=== PATIENT | male | born 1995 | race Caucasian/White ===

== ENCOUNTER 2022-08-08 06:35 | Day surgery (SDC) | payer BC ==
[2022-08-07 12:55] VITALS: BMI 27.7
[2022-08-08] MEDS ORDERED: Midazolam HCl 2 mg/2 ml Vial ONE (07:22)
[2022-08-08] MEDS ORDERED: fentaNYL Citrate/PF 100 MCG/2 ML SYRINGE ONE ×2 (08:26)
[2022-08-08] MEDS ORDERED: SUGAMMADEX SODIUM 200 MG/2 ML VIAL ONE (08:26)
[2022-08-08] MEDS ORDERED: Lidocaine 1% MPF 2 ML VIAL ONE (08:54)
[2022-08-08] MEDS ORDERED: PROPOFOL 200 MG/20 ML VIAL ONE (08:54)
[2022-08-08] MEDS ORDERED: Dexamethasone 20 MG/5 ML VIAL ONE (08:54)
[2022-08-08] MEDS ORDERED: Rocuronium Bromide 10 MG/ML (10ML VIAL) ONE (08:54)
[2022-08-08] MEDS ORDERED: Ferric Subsulfate (ASTRINGYN) 8 GM VIAL ONE (09:12)
[2022-08-08] MEDS ORDERED: Hydrocodone-Acetamin 15 ML UDCUP ONE (10:31)
== END 2022-08-08 11:00 | disposition home or self-care (01) ==
LOC: SDC 06:35
PROVIDERS: ATTEND Specialist
PROC: 0CTPXZZ Resection of Tonsils, External Approach (ICD-10-PCS; principal; 2022-08-08)
DX: J35.01 Chronic tonsillitis (principal); G47.33 Obstructive sleep apnea (adult) (pediatric); Z86.16 Personal history of COVID-19
CPT/HCPCS: 88304; J1100; J2250; J2704